=== PATIENT | male | born 1975 | race African-American/Black ===

== ENCOUNTER 2017-08-23 09:54 | Outpatient (CLI) ==
[2017-08-23 10:35] LABS: CHOL/HDL RATIO 4.9 (4.5-6.4)
== END 2017-08-23 09:55 | disposition home or self-care (01) ==
LOC: LAB 09:54
PROVIDERS: ATTEND Family Medicine
DX: Z00.00 Encounter for general adult medical examination without abnormal findings (principal)
CPT/HCPCS: 36415; 80061; 82947

== ENCOUNTER 2017-11-13 11:52 | Outpatient (CLI) | END 2017-11-13 11:53 | disposition home or self-care (01) | LOC: LAB 11:52 | PROVIDERS: ATTEND Family Medicine | DX: Z01.818 Encounter for other preprocedural examination (principal) | CPT/HCPCS: 36415; 82565 ==

== ENCOUNTER 2017-11-14 08:41 | Outpatient (CLI) ==
--- NOTE | 2017-11-14 10:22 | CT ---
EXAM: CT of the abdomen pelvis with contrast History: Left-sided abdominal pain, mucous in stool. Technique: Multiplanar CT images through the abdomen pelvis were obtained following administration o f IV contrast Findings: Lung bases are free of consolidation. No acute osseous abnormalities. No discrete gallstones identified by CT. No focal liver or splenic lesions. The adrenal glands are unremarkable. Pancreas is within normal limits. No renal masses. The appendix is normal. No bowel obstruction. No free air and no ascites. No pathologically enlarged lymph nodes. Bladder is not w ell distended. There is no focal bladder wall thickening. No perirectal inflammation. Prominent antunez bmucosal fat deposition seen within the amaya of the colon and distal small bowel. There is no signi ficant hyperemia or inflammatory stranding seen adjacent to the bowel. Impression: 1. No acute intra-abdominal or pelvic process. 2. Submucosal fat deposition within the amaya of the colon and distal small bowel suggesting prior e pisodes of inflammatory bowel disease. There is no evidence for acute bowel inflammation.
== END 2017-11-14 08:42 | disposition home or self-care (01) ==
LOC: RAD 08:41
PROVIDERS: ATTEND Family Medicine
DX: R10.9 Unspecified abdominal pain (principal)